=== PATIENT | male | born 1965 | race Caucasian/White ===

== ENCOUNTER 2020-08-23 12:13 | Inpatient (IN) | payer BC ==
[2020-08-23] MEDS ORDERED: SODIUM CHLORIDE 0.9% 1,000 ML IV STA (12:26)
--- NOTE | 2020-08-23 12:37 | ED ---
Seizure HPI - General Chief Complaint: Seizure Stated Complaint: Seizure Time Seen by Provider: 08/23/20 12:20 Source: patient, RN notes reviewed, old records reviewed Mode of arrival: EMS Limitations: no limitations - History of Present Illness Initial Comments: This is a 54-year-old male DF for evaluation history of alcohol abuse last drink last Wednesday coming in for seizure today. Patient standing up had seizure fell forward hit his head when on his face, minor abrasions to his anterior face no active bleeding unsure of loss of consciousness is again patient was having seizure during this time. Seizure was witnessed this is the second seizure he does have pertaining alcohol withdrawal MD Complaint: seizure -: days(s) Description of Episode: loss of consciousness, tonic-clonic movement -: second(s) Witnessed: yes - by bystander Trauma: Yes Seizure History: known seizure disorder Place: home Possible Precipitating Event: none Associated Symptoms: denies other symptoms Treatments Prior to Arrival: none - Related Data Home Medications Medication Instructions Recorded Confirmed HYDROcodone/APAP 10-325MG [[place] 1 tab PO BID PRN 08/23/20 08/23/20 10-325] Ibuprofen [Motrin] 800 mg PO BID PRN 08/23/20 08/23/20 Methocarbamol [Robaxin-750] 750 mg PO DAILY PRN 08/23/20 08/23/20 Allergies Allergy/AdvReac Type Severity Reaction Status Date / Time No Known Allergies Allergy Verified 08/23/20 14:47 Review of Systems ROS Statement: Those systems with pertinent positive or pertinent negative responses have been documented in the HPI. ROS Other: All systems not noted in ROS Statement are negative. Past Medical History Past Medical History: Seizure Disorder History of Any Multi-Drug Resistant Organisms: None Reported Past Surgical History: Orthopedic Surgery Additional Past Surgical History / Comment(s): neck surgery Past Psychological History: No Psychological Hx Reported Smoking Status: Current every day smoker Past Alcohol Use History: Occasional Past Drug Use History: None Reported General Exam Limitations: no limitations General appearance: alert, in no apparent distress Head exam: Present: atraumatic, normocephalic, normal inspection Eye exam: Present: normal appearance, PERRL, EOMI. Absent: scleral icterus, conjunctival injection, periorbital swelling ENT exam: Present: normal exam, mucous membranes moist Neck exam: Present: normal inspection. Absent: tenderness, meningismus, lymphadenopathy Respiratory exam: Present: normal lung sounds bilaterally. Absent: respiratory distress, wheezes, rales, rhonchi, stridor Cardiovascular Exam: Present: normal rhythm, tachycardia, normal heart sounds. Absent: systolic murmur, diastolic murmur, rubs, gallop, clicks GI/Abdominal exam: Present: soft, normal bowel sounds. Absent: distended, tende rness, guarding, rebound, rigid Extremities exam: Present: normal inspection, full ROM, normal capillary refill. Absent: tenderness, pedal edema, joint swelling, calf tenderness Back exam: Present: normal inspection Neurological exam: Present: alert, oriented X3, CN II-XII intact Psychiatric exam: Present: normal affect, normal mood Skin exam: Present: warm, dry, intact, normal color. Absent: rash Course Vital Signs 08/23/20 08/23/20 08/23/20 12:20 13:27 14:00 Temperature 98.7 F Pulse Rate 122 H 109 H 109 H Respiratory 18 16 18 Rate Blood Pressure 117/78 111/73 111/73 O2 Sat by Pulse 97 99 96 Oximetry - Reevaluation(s) Reevaluation #1: 08/23/20 13:37 Medical record is reviewed Reevaluation #2: 08/23/20 13:37 Patient has no recurrent seizures so far here in the ER Reevaluation #3: 08/23/20 14:57 no recurrent seizure Reevaluation #4: 08/23/20 14:58 patient is informed of results and questions are answered Medical Decision Making - Medical Decision Making 54 male to the ER for evaluation patient to the ER for evaluation of seizure DTs. Patient did have seizure, patient be admitted for monitoring for seizure and alcohol withdrawal - Lab Data Result diagrams: 08/23/20 12:36 08/23/20 12:36 Lab Results 08/23/20 08/23/20 Range/Units 12:36 12:36 WBC 10.0 (3.8-10.6) k/uL RBC 3.64 L (4.30-5.90) m/uL Hgb 13.8 (13.0-17.5) gm/dL Hct 42.1 (39.0-53.0) % MCV 115.5 H (80.0-100.0) fL MCH 37.9 H (25.0-35.0) pg MCHC 32.9 (31.0-37.0) g/dL RDW 12.3 (11.5-15.5) % Plt Count 87 L (150-450) k/uL Neutrophils % 70 % Lymphocytes % 17 % Monocytes % 9 % Eosinophils % 2 % Basophils % 1 % Neutrophils # 7.0 (1.3-7.7) k/uL Lymphocytes # 1.7 (1.0-4.8) k/uL Monocytes # 0.9 (0-1.0) k/uL Eosinophils # 0.2 (0-0.7) k/uL Basophils # 0.1 (0-0.2) k/uL Manual Slide Review Performed Large Platelets Present Polychromasia Present Macrocytosis Marked A Sodium 129 L (137-145) mmol/L Potassium 3.4 L (3.5-5.1) mmol/L Chloride 102 (98-107) mmol/L Carbon Dioxide 18 L (22-30) mmol/L Anion Gap 9 mmol/L BUN 4 L (9-20) mg/dL Creatinine 0.59 L (0.66-1.25) mg/dL Est GFR (CKD-EPI)AfAm >90 (>60 ml/min/1.73 sqM) Est GFR (CKD-EPI)NonAf >90 (>60 ml/min/1.73 sqM) Glucose 173 H (74-99) mg/dL Calcium 8.8 (8.4-10.2) mg/dL Total Bilirubin 3.2 H (0.2-1.3) mg/dL AST 92 H (17-59) U/L ALT 29 (4-49) U/L Alkaline Phosphatase 273 H (38-126) U/L Total Protein 6.3 (6.3-8.2) g/dL Albumin 2.8 L (3.5-5.0) g/dL Salicylates <1.0 mg/dL Acetaminophen <10.0 ug/mL Serum Alcohol <10 mg/dL - EKG Data -: EKG Interpreted by Me (EKG shows sinus tachycardia rate of 1:30 FL 152 QRS 94 QTC 456) - Radiology Data Radiology results: report reviewed (CT brain C spine is negative for acute disease), image reviewed Critical Care Time Critical Care Time: Yes Total Critical Care Time: 31 Disposition Clinical Impression: New onset seizure, Alcohol withdrawal, Delirium tremens Disposition: ADMITTED IP TO THIS HOSP Condition: Fair Is patient prescribed a controlled substance at d/c from ED?: No Referrals: Nonstaff,Physician [Primary Care Provider] - 1-2 days
[2020-08-23] MEDS ORDERED: LORazepam 2 MG/ML INJ IV STA (12:49)
[2020-08-23] MEDS ORDERED: LORazepam 2 MG/ML INJ IV PRN ×3 (12:49)
[2020-08-23] MEDS ORDERED: THIAMINE 100 MG/ML 2 ML VIAL IM STA (12:49)
[2020-08-23 13:04] LABS: Basophils # (A) 0.1 k/uL (0-0.2); Basophils % (A) 1 %; Eosinophils # (A) 0.2 k/uL (0-0.7); Eosinophils % (A) 2 %; HCT 42.1 % (39.0-53.0); HGB 13.8 gm/dL (13.0-17.5); Lymphocytes # (A) 1.7 k/uL (1.0-4.8); Lymphocytes % (A) 17 %; MCH 37.9 pg (25.0-35.0); MCHC 32.9 g/dL (31.0-37.0); MCV 115.5 fL (80.0-100.0); Macrocytosis Marked; Mean Platelet Volume 12.4; Monocytes # (A) 0.9 k/uL (0-1.0); Monocytes % (A) 9 %; Neutrophils % (A) 70 %; RBC 3.64 m/uL (4.30-5.90); RDW 12.3 % (11.5-15.5)
[2020-08-23 13:19] LABS: ALT 29 U/L (4-49); AST 92 U/L (17-59); Acetaminophen <10.0 ug/mL; African American GFR (CKD) >90 (>60 ml/min/1.73 sqM); Albumin 2.8 g/dL (3.5-5.0); Alcohol <10 mg/dL; Alkaline Phosphatase 273 U/L (38-126); Anion Gap 9 mmol/L; Blood Urea Nitrogen 4 mg/dL (9-20); Calcium 8.8 mg/dL (8.4-10.2); Carbon Dioxide 18 mmol/L (22-30); Chloride 102 mmol/L (98-107); Glucose 173 mg/dL (74-99); Non-African American GFR(CKD) >90 (>60 ml/min/1.73 sqM); Potassium 3.4 mmol/L (3.5-5.1); Salicylate <1.0 mg/dL; Sodium 129 mmol/L (137-145); Total Bilirubin 3.2 mg/dL (0.2-1.3); Total Protein 6.3 g/dL (6.3-8.2)
--- NOTE | 2020-08-23 13:44 | CT ---
EXAMINATION TYPE: CT brain cspine wo con, CT facial bones wo con DATE OF EXAM: 08/23/2020 COMPARISON: None HISTORY: Fall, pain, possible seizure CT DLP: 1113.2 (accession [id number]), Included in c-spine/brain (accession [id number]) [facility] exposure control for dose reduction was used. TECHNIQUE: CT scan of the head and cervical spine and facial bones are performed without contrast. FINDINGS: There is no acute intracranial hemorrhage, mass effect, or midline shift identified. The ventricles and sulci are within normal limits in size. Suspect choroidal fissure cysts are present. There is cortical atrophy is mild. The globes are intact and the visualized sinuses are markable for air-fluid level within the right maxillary sinus, minimal inflammatory change within the left maxill rakel sinus, ethmoid air cells, frontal sinus. Cervical spine is visualized in its entirety from C1 through upper thoracic levels and demonstrates s atisfactory alignment without evidence of acute fracture or dislocation. Reversal the normal cervical lordosis can be seen in muscle spasm. Is multilevel spondylosis. Loss of disc height is present at C 5-6 and C6-7. Posterior laminectomies, posterior fusion performed at C5-6. There is multilevel forami nal encroachment. Prevertebral soft tissue appears within normal limits. The C1-C2 articulation is u nremarkable. Comminuted nasal bone fractures are displaced. There is air-fluid level within the right maxillary si nus which shows high attenuation. Anterior wall the right maxillary sinus shows minimally displaced f racture. The medial right maxillary sinus wall shows probable fracture as well, redundant nasal septu m may be indicative of fracture with buckling. Over the right frontal region there is a cephalohemato ma present. Orbits are intact. Temporomandibular joints intact. Auditory ossicles show symmetric appe arance. No erosion of the scutum bilaterally, no tympanic membrane thickening. IMPRESSION: 1. There is no acute fracture or dislocation evident in the cervical spine. 2. No acute intracranial hemorrhage, mass effect, or midline shift is seen. 3. Comminuted nasal bone fractures. Hemorrhage noted within right maxillary sinus, there is a cephalo hematoma over the supraorbital region. Right maxillary sinus fractures.
[2020-08-23 14:07] LABS: Large Platelets Present; Platelet Count 87 k/uL (150-450); Polychromasia Present
[2020-08-23] MEDS ORDERED: SODIUM CHLORIDE 0.9% 1,000 ML IV ONE (14:54)
[2020-08-23] MEDS ORDERED: levETIRAcetam IV 1,500 MG in SALINE 1 100ML.BAG IVPB STA (14:57)
[2020-08-23] MEDS ORDERED: DIAZEPAM 5 MG/ML 2 ML INJ IVP STA (15:18)
[2020-08-23] MEDS: THIAMINE 100 MG TAB PO SCH (18:11)
[2020-08-23] MEDS ORDERED: NALOXONE 0.4 MG/ML 1 ML VIAL IV PRN (19:15)
[2020-08-23] MEDS ORDERED: ACETAMINOPHEN TAB 325 MG TAB PO PRN (19:15)
[2020-08-23] MEDS ORDERED: SODIUM CHLORIDE 0.9% 1,000 ML IV SCH (19:15)
[2020-08-23] MEDS ORDERED: Potassium Replacement Protocol 1 EACH MISC MISCELLANE PRN (19:19)
[2020-08-23] MEDS: SODIUM CHLORIDE 0.9% 1,000 ML IV SCH (19:30)
[2020-08-23] MEDS: HEPARIN SODIUM,PORCINE 5,000 UNIT/ML 1 ML VIAL SQ SCH (20:27)
--- NOTE | 2020-08-23 20:47 | P.CNNES ---
History of Present Illness Consult date: 08/23/20 Requesting physician: Andres Rooney Reason for Consult: Seizure History of Present Illness: Patient is a 54-year-old male, who came to the hospital today at 12:13 PM by ambulance for seizure. Patient has history of alcohol abuse, last drink last Wednesday (a week ago), came in for seizures. According to EMS flow sheet, it was reported that he was standing next to his stepdaughter's car and then fell forwards, face down and began seizing in the parking lot. She described grand mal type seizure activity. The seizure lasted about 1-1-1/2 minutes. He had minor abrasion to the anterior face, no active bleeding. Patient was post ictal when EMS arrived. Patient did bite his tongue with the seizure. Patient's vital signs at the scene was blood pressure 137/88, pulse rate 134, respirations 16, saturation 95% and blood glucose 180. Vital signs on arrival blood pressure 117/78, pulse rate 122, temperature 98.7. Computed tomography scan of the head showed no acute intracranial hemorrhage, mass effect. CT of the facial bones revealed comminuted nasal bone fractures. Hemorrhage noted within the right maxillary sinus, there is a cephalohematoma over the supraorbital region. Right maxillary sinus fractures. EKG shows sinus tachycardia, possible lateral infarct, age undetermined. Blood test shows ne gative blood alcohol level. Sodium 139 potassium 3.4, renal functions normal. AST 92, ALT 29, WBC 10.0, hemoglobin 13.8, platelets 87. MCV is highly elevated 115. Patient was brought to the ER. No seizures have occurred while in the ER, patient was admitted for possible alcohol withdrawal, possible DTs. Keppra was started. Patient states he had history of a seizure in 2017 when he was undergoing rehabilitation. No other seizures since then. I tried to ask alcohol history but patient apparently keeps on changing statement. he states that he has not drank alcohol for a week. Prior to that he was drinking 6 pack beer a day. denies any drug use. Review of Systems patient complains of nose pain, some headache. Denies any focal symptoms denies chest pain. All other review of systems unremarkable. Past Medical History Past Medical History: Seizure Disorder History of Any Multi-Drug Resistant Organisms: None Reported Past Surgical History: Adenoidectomy, Orthopedic Surgery, Tonsillectomy Additional Past Surgical History / Comment(s): neck surgery Past Psychological History: No Psychological Hx Reported Smoking Status: Former smoker Past Alcohol Use History: Occasional Past Drug Use History: None Reported Medications and Allergies Home Medications Medication Instructions Recorded Confirmed Type HYDROcodone/APAP 10-325MG [[place] 1 tab PO BID PRN 08/23/20 08/23/20 History 10-325] Ibuprofen [Motrin] 800 mg PO BID PRN 08/23/20 08/23/20 History Methocarbamol [Robaxin-750] 750 mg PO DAILY PRN 08/23/20 08/23/20 History Allergies Allergy/AdvReac Type Severity Reaction Status Date / Time No Known Allergies Allergy Verified 08/23/20 14:47 Physical Examination - Vital Signs Vital Signs: Vital Signs Temp Pulse Resp BP Pulse Ox 08/23/20 16:07 98.4 F 96 18 95/63 95 08/23/20 14:00 109 H 18 111/73 96 08/23/20 13:27 109 H 16 111/73 99 08/23/20 12:20 98.7 F 122 H 18 117/78 97 Intake and Output 08/23/20 08/23/20 08/23/20 06:59 14:59 22:59 Other: Weight 81.647 kg 81.647 kg On examination patient is a middle aged male, in no acute distress. Patient appears slightly tremulous. He is alert and awake fully oriented. Speech and language functions are normal. Attention and concentration fund of knowledge appears adequate. On cranial examination pupils are round and reactive to light, visual butler are full on confrontation, extraocular muscles are intact with no nystagmus. Face is symmetric. Tongue protrudes to the midline. patient has evidence of tongue bite kindra on the left. Palatal elevation and sensation normal. Hearing and shoulder shrug normal. On muscle strength testing there is no pronator drift and the strength is normal in arms and legs, distally and proximally. Deep tendon reflexes are symmetric. patient is slightly tremulous for [id number] testing. Tone and bulk of muscles normal. Gait deferred. No obvious bruit S1 and S2 audible. No peripheral edema. Chest clear abdomen soft nontender. Results - Laboratory Findings CBC and BMP: 08/23/20 12:36 08/23/20 12:36 Abnormal Lab Findings: Abnormal Labs 08/23/20 08/23/20 12:36 12:36 RBC 3.64 L MCV 115.5 H MCH 37.9 H Plt Count 87 L Macrocytosis Marked A Sodium 129 L Potassium 3.4 L Carbon Dioxide 18 L BUN 4 L Creatinine 0.59 L Glucose 173 H Total Bilirubin 3.2 H AST 92 H Alkaline Phosphatase 273 H Albumin 2.8 L Assessment and Plan Assessment: * Seizure, probably due to alcohol withdrawal. * Nasal bone fracture due to fall from seizure * Delirium tremens. * History of alcoholism. Plan: * Continue Keppra. May decrease dose to 500 mg twice a day, as the seizure was likely provoked due to alcohol withdrawal. * EEG to evaluate for epileptiform activity. This can be done as inpatient or outpatient. * Patient informed of [place] state law of no driving unless seizure free for 6 months, climbing ladders, operate dangerous machinery or unsupervised sw imming. * Watch for delirium tremens. Continue thiamine, folate, multivitamins. * Recommend abstinence from alcohol.
[2020-08-23] MEDS: levETIRAcetam 500 MG TAB PO SCH (21:08)
[2020-08-23 23:31] LABS: Amphetamine Screen,Urine Not Detected (NotDetected); Barbiturate Screen,Urine Not Detected (NotDetected); Benzodiazepines Screen,Urine Detected (NotDetected); Cocaine Screen,Urine Not Detected (NotDetected); Methadone Screen, Urine Not Detected (NotDetected); Opiate Screen,Urine Not Detected (NotDetected); Oxycodone Screen, Urine Not Detected (NotDetected); Phencyclidine Screen,Urine Not Detected (NotDetected); Tricyclic Antidepressant,Urine Not Detected (NotDetected); Urn Cannabinoid Scrn Not Detected (NotDetected)
[2020-08-24] MEDS ORDERED: levETIRAcetam IV 1,000 MG in SALINE 1 100ML.BAG IVPB SCH
[2020-08-24] MEDS: SODIUM CHLORIDE 0.9% 1,000 ML IV SCH ×4 (02:32→21:00)
[2020-08-24 06:37] LABS: HCT 38.1 % (39.0-53.0); HGB 12.5 gm/dL (13.0-17.5); MCH 38.3 pg (25.0-35.0); MCHC 32.9 g/dL (31.0-37.0); MCV 116.4 fL (80.0-100.0); Macrocytosis Marked; Mean Platelet Volume 11.9; RBC 3.27 m/uL (4.30-5.90); RDW 12.5 % (11.5-15.5); WBC 6.4 k/uL (3.8-10.6)
[2020-08-24 06:38] LABS: Platelet Count 76 k/uL (150-450)
[2020-08-24 06:57] LABS: Eosinophils # (M) 0.13 k/uL (0-0.7); Lymphocytes # (M) 1.73 k/uL (1.0-4.8); Monocytes # (M) 0.26 k/uL (0-1.0); Neutrophils # (M) 4.29 k/uL (1.3-7.7); Neutrophils % (M) 67 %; Nucleated Red Blood Cells 0 /100 WBC (0-0); Total Cells Counted 100
[2020-08-24 06:58] LABS: Large Platelets Present
[2020-08-24] MEDS: THIAMINE 100 MG TAB PO SCH ×2 (08:52→17:36)
[2020-08-24] MEDS: HYDROcodone/APAP 10-325MG 1 EACH TAB PO PRN (08:53)
[2020-08-24] MEDS: HEPARIN SODIUM,PORCINE 5,000 UNIT/ML 1 ML VIAL SQ SCH ×2 (08:53→21:00)
[2020-08-24] MEDS: levETIRAcetam 500 MG TAB PO SCH ×2 (09:02→21:00)
--- NOTE | 2020-08-24 09:23 | P.HPIM ---
History of Present Illness H&P Date: 08/23/20 This is a late note entry. Patient was seen around 7 PM yesterday. This is a 54-year-old male with no past medical history history of alcohol abuse quit 2 weeks ago has about 6 beers daily presented to the ED after a witnessed seizure. He reports one other seizure in 2017 while in alcohol rehab. He currently takes no antiepileptic medication. He does say he hit his head. Apparently, patient was going to leave AMA but decided against it. He denies any headache, lower extremity edema, nausea or vomiting, fever or chills, cough, chest pain, shortness of breath, palpitations, changes in urination or bowel habits. No changes in appetite or weight. He denies any dizziness. In the ED, his vital signs were stable except for pulse of 122. CBC showed macrocytosis and thrombocytopenia. CMP showed sodium of 129, potassium of 3.4 bicarb of 18, glucose 173, total bilirubin 3.2, AST 92, alkaline phosphatase 273. UDS positive for benzos. Serum alcohol negative. Patient is admitted for seizure and alcohol abuse impending withdrawals. Review of Systems Pertinent positives and negatives as discussed in HPI, a complete review of systems was performed and all other systems are negative. Past Medical History Past Medical History: Seizure Disorder History of Any Multi-Drug Resistant Organisms: None Reported Past Surgical History: Adenoidectomy, Orthopedic Surgery, Tonsillectomy Additional Past Surgical History / Comment(s): neck surgery Past Psychological History: No Psychological Hx Reported Smoking Status: Former smoker Past Alcohol Use History: Occasional Past Drug Use History: None Reported Medications and Allergies Home Medications Medication Instructions Recorded Confirmed Type HYDROcodone/APAP 10-325MG [[place] 1 tab PO BID PRN 08/23/20 08/23/20 History 10-325] Ibuprofen [Motrin] 800 mg PO BID PRN 08/23/20 08/23/20 History Methocarbamol [Robaxin-750] 750 mg PO DAILY PRN 08/23/20 08/23/20 History Allergies Allergy/AdvReac Type Severity Reaction Status Date / Time No Known Allergies Allergy Verified 08/23/20 14:47 Physical Exam Vitals: Vital Signs Temp Pulse Resp BP Pulse Ox 08/23/20 16:07 98.4 F 96 18 95/63 95 08/23/20 14:00 109 H 18 111/73 96 08/23/20 13:27 109 H 16 111/73 99 08/23/20 12:20 98.7 F 122 H 18 117/78 97 Intake and Output 08/23/20 08/23/20 08/23/20 06:59 14:59 22:59 Other: Weight 81.647 kg 81.647 kg General: [non toxic], [no distress], [appears at stated age] Derm: [warm], [dry], large bruise over the forehead Head: [atraumatic], [normocephalic], [symmetric] Eyes: [EOMI], [no lid lag], [anicteric sclera] Mouth: [no lip lesion], [mucus membranes moist] Cardiovascular: [S1S2 reg], [tachycardic], [positive posterior tibial pulse bilateral], Lungs: [CTA bilateral], [no rhonchi, no rales] , [no accessory muscle use] Abdominal: [soft], [ nontender to palpation], [no guarding], [no appreciable organomegaly] Ext: [no gross muscle atrophy], [no edema], [no contractures] Neuro: [ CN II-XI grossly intact], [no focal neuro deficits], mild tremors Psych: [Alert], [oriented], [appropriate affect] Results CBC & Chem 7: 08/24/20 05:35 08/23/20 12:36 Labs: Abnormal Lab Results - Last 24 Hours (Table) 08/23/20 08/23/20 Range/Units 12:36 12:36 RBC 3.64 L (4.30-5.90) m/uL MCV 115.5 H (80.0-100.0) fL MCH 37.9 H (25.0-35.0) pg Plt Count 87 L (150-450) k/uL Macrocytosis Marked A Sodium 129 L (137-145) mmol/L Potassium 3.4 L (3.5-5.1) mmol/L Carbon Dioxide 18 L (22-30) mmol/L BUN 4 L (9-20) mg/dL Creatinine 0.59 L (0.66-1.25) mg/dL Glucose 173 H (74-99) mg/dL Total Bilirubin 3.2 H (0.2-1.3) mg/dL AST 92 H (17-59) U/L Alkaline Phosphatase 273 H (38-126) U/L Albumin 2.8 L (3.5-5.0) g/dL Thrombosis Risk Factor Assmnt - Choose All That Apply Any of the Below Risk Factors Present?: No Assessment and Plan Assessment: Seizure likely related to alcohol withdrawal Nasal bone fracture History of alcoholism with impending withdrawal Macrocytosis with thrombocytopenia Hyponatremia Hypokalemia Alcoholic hepatitis Patient is admitted after witnessed seizure. Plans: He has been loaded on Keppra. He will be placed on CIWA protocol and given Ativan as needed. Neurology has been consulted for further recommendations. Telemetry monitoring. As seen on face CT. Plans: Continue to monitor. Plans: Management as above. Likely related to alcohol abuse. Plans: Continue to monitor. No signs of active bleeding. Repeat CBC tomorrow morning. Sodium 129. Likely related to dehydration. Plans: IV hydration as above. Repeat CMP tomorrow morning. Potassium 3.4. Plans: Replace via protocol. Repeat CMP tomorrow morning. Likely related to history of alcohol abuse. Plans: Encouraged to quit. DVT prophylaxis: [SCD boots] Discussed with: [Patient] Anticipated discharge: [2-3 days] Anticipated discharge place: [Home] A total of [45] minutes was spent on the care of this complex patient more than 50% of the time was spent in counseling and care coordination. Patient name to his fiance decision maker if he can't make decisions for himself. Patient would like to be full code.
[2020-08-24 09:46] LABS: Albumin 2.4 g/dL (3.80-4.90); Albumin/Globulin Ratio 0.96 (1.60-3.17); Anion Gap 6.4 mmol/L (4.00-12.00); BUN/Creat Ratio 8.33 Ratio (12.00-20.00); Calcium 7.7 mg/dL (8.7-10.3); Carbon Dioxide 22.6 mmol/L (21.6-31.8); Globulin 2.5 g/dL (1.6-3.3); Magnesium 1.4 mg/dL (1.5-2.4); Non-African American GFR(CKD) 115.6 (60.0-200.0); Potassium 3.2 mmol/L (3.5-5.5); Total Protein 4.9 g/dL (6.2-8.2)
[2020-08-24] MEDS ORDERED: Potassium Replacement Protocol 1 EACH MISC MISCELLANE PRN (11:07)
[2020-08-24] MEDS: MAGNESIUM SULFATE-D5W PMX 1 GM in DEXTROSE/WATER 1 100ML.BAG IVPB SCH ×2 (12:26→13:42)
[2020-08-24] MEDS: POTASSIUM CHLORIDE ER 20 MEQ TAB.ER PO SCH ×2 (12:26→13:42)
--- NOTE | 2020-08-24 13:15 | P.PN ---
Subjective Progress Note Date: 08/24/20 Patient was seen and examined. No acute events overnight. Nursing reporting shakiness. He denies any chest pain, shortness breath or palpitations. No nausea or vomiting. No fever or chills. No further seizure episodes. Objective - Vital Signs Vital signs: Vital Signs Temp 98.4 F 08/24/20 11:52 Pulse 76 08/24/20 11:52 Resp 16 08/24/20 11:52 BP 100/69 08/24/20 11:52 Pulse Ox 95 08/24/20 11:52 Intake & Output 08/23/20 08/24/20 08/24/20 18:59 06:59 18:59 Intake Total 800 Output Total 700 Balance 100 Weight 81.647 kg Intake: Intake, IV Titration 800 Amount Sodium Chloride 0.9% 1, 200 000 ml @ 150 mls/hr IV . Q6H40M REJI Rx#:[id number] Sodium Chloride 0.9% 1, 600 000 ml @ 150 mls/hr IV . Q6H40M REJI Rx#:[id number] Output: Urine 700 Other: Voiding Method Urinal Urinal # Voids 1 - Exam General: [non toxic], [no distress], [appears at stated age] Derm: [warm], [dry], large bruise over the forehead, bruising over the orbital socket Head: [atraumatic], [normocephalic], [symmetric] Eyes: [EOMI], [no lid lag], [anicteric sclera] Mouth: [no lip lesion], [mucus membranes moist] Cardiovascular: [S1S2 reg], [tachycardic], [positive posterior tibial pulse bilateral], Lungs: [CTA bilateral], [no rhonchi, no rales] , [no accessory muscle use] Abdominal: [soft], [ nontender to palpation], [no guarding], [no appreciable organomegaly] Ext: [no gross muscle atrophy], [no edema], [no contractures] Neuro: [no focal neuro deficits], mild tremors Psych: [Alert], [oriented], [appropriate affect] - Labs CBC & Chem 7: 08/24/20 05:35 08/24/20 05:35 Labs: Abnormal Lab Results - Last 24 Hours (Table) 08/23/20 08/23/20 08/23/20 Range/Units 12:36 12:36 23:10 RBC 3.64 L (4.30-5.90) m/uL Hgb (13.0-17.5) gm/dL Hct (39.0-53.0) % MCV 115.5 H (80.0-100.0) fL MCH 37.9 H (25.0-35.0) pg Plt Count 87 L (150-450) k/uL Macrocytosis Marked A Sodium 129 L (137-145) mmol/L Potassium 3.4 L (3.5-5.1) mmol/L Carbon Dioxide 18 L (22-30) mmol/L BUN 4 L (9-20) mg/dL Creatinine 0.59 L (0.66-1.25) mg/dL BUN/Creatinine Ratio (12.00-20.00) Ratio Glucose 173 H (74-99) mg/dL Calcium (8.7-10.3) mg/dL Magnesium (1.5-2.4) mg/dL Total Bilirubin 3.2 H (0.2-1.3) mg/dL AST 92 H (17-59) U/L Alkaline Phosphatase 273 H (38-126) U/L Total Protein (6.2-8.2) g/dL Albumin 2.8 L (3.5-5.0) g/dL Albumin/Globulin Ratio (1.60-3.17) g/dL U Benzodiazepines Scrn Detected H (NotDetected) 08/24/20 08/24/20 Range/Units 05:35 05:35 RBC 3.27 L (4.30-5.90) m/uL Hgb 12.5 L (13.0-17.5) gm/dL Hct 38.1 L (39.0-53.0) % MCV 116.4 H (80.0-100.0) fL MCH 38.3 H (25.0-35.0) pg Plt Count 76 L (150-450) k/uL Macrocytosis Marked A Sodium (137-145) mmol/L Potassium 3.2 L (3.5-5.1) mmol/L Carbon Dioxide (22-30) mmol/L BUN 5.0 L (9-20) mg/dL Creatinine (0.66-1.25) mg/dL BUN/Creatinine Ratio 8.33 L (12.00-20.00) Ratio Glucose (74-99) mg/dL Calcium 7.7 L (8.7-10.3) mg/dL Magnesium 1.4 L (1.5-2.4) mg/dL Total Bilirubin 3.0 H (0.2-1.3) mg/dL AST 78 H (17-59) U/L Alkaline Phosphatase 192 H (38-126) U/L Total Protein 4.9 L (6.2-8.2) g/dL Albumin 2.40 L (3.5-5.0) g/dL Albumin/Globulin Ratio 0.96 L (1.60-3.17) g/dL U Benzodiazepines Scrn (NotDetected) Assessment and Plan Assessment: Seizure likely related to alcohol withdrawal Nasal bone fracture History of alcoholism with impending withdrawal Macrocytosis with thrombocytopenia Hypokalemia Alcoholic hepatitis Patient is admitted after witnessed seizure. Plans: He has been loaded on Keppra. Patient is restarted on Keppra by mouth. EEG has been ordered and is pending. He will be placed on CIWA protocol and given Ativan as needed. Neurology has been consulted for further recommendations. Telemetry monitoring. As seen on face CT. Plans: Continue to monitor. Plans: Management as above. Likely related to alcohol abuse. Plans: Continue to monitor. No signs of active bleeding. Repeat CBC tomorrow morning. Started on Librium. Potassium 3.2. Plans: Replace via protocol. Repeat CMP tomorrow morning. Likely related to history of alcohol abuse. Plans: Encouraged to quit. DVT prophylaxis: [SCD boots] Discussed with: [Patient] Anticipated discharge: [2-3 days] Anticipated discharge place: [Home] A total of [45] minutes was spent on the care of this complex patient more than 50% of the time was spent in counseling and care coordination. Patient name to his fiance decision maker if he can't make decisions for himself. Patient would like to be full code.
[2020-08-25] MEDS: SODIUM CHLORIDE 0.9% 1,000 ML IV SCH (04:36)
[2020-08-25] MEDS: THIAMINE 100 MG TAB PO SCH (08:04)
[2020-08-25] MEDS: levETIRAcetam 500 MG TAB PO SCH (08:04)
[2020-08-25] MEDS: HEPARIN SODIUM,PORCINE 5,000 UNIT/ML 1 ML VIAL SQ SCH (08:04)
[2020-08-25 11:44] VITALS: BP 117/80; PULSE 98; RESP 16; TEMP 98.1
[2020-08-25] MEDS: HYDROcodone/APAP 10-325MG 1 EACH TAB PO PRN (13:34)
--- NOTE | 2020-08-25 14:09 | P.DS ---
Providers Date of admission: 08/23/20 14:54 Expected date of discharge: 08/25/20 Attending physician: Susanne Ontiveros MD Consults: 08/23/20 14:54 Consult Physician Routine Consulting Provider: Julien Qureshi Consult Reason/Comments: sz Do you want consulting provider notified?: Yes Primary care physician: Physician Nonstaff Hospital Course: This is a 54-year-old male with no past medical history history of alcohol abuse quit 2 weeks ago has about 6 beers daily presented to the ED after a witnessed seizure. He reports one other seizure in 2017 while in alcohol rehab. He currently takes no antiepileptic medication. He does say he hit his head. Apparently, patient was going to leave AMA but decided against it. He denies any headache, lower extremity edema, nausea or vomiting, fever or chills, cough, chest pain, shortness of breath, palpitations, changes in urination or bowel habits. No changes in appetite or weight. He denies any dizziness. In the ED, his vital signs were stable except for pulse of 122. CBC showed macrocytosis and thrombocytopenia. CMP showed sodium of 129, potassium of 3.4 bicarb of 18, glucose 173, total bilirubin 3.2, AST 92, alkaline phosphatase 273. UDS positive for benzos. Serum alcohol negative. Patient is admitted for seizure and alcohol abuse impending withdrawals. Patient was started on Keppra IV and neurology was consulted. Neurology recommended Keppra by mouth. Neurology recommended EEG to be done in the outpatient setting. Patient did not have any further seizure episodes. Patient was advised that he cannot drive unless seizure free for 6 months. Patient was seen and examined. No acute events overnight. Patient denies any chest pain, shortness breath or palpitations. No nausea or vomiting. No fever or chills. Wanting to go home. General: [non toxic], [no distress], [appears at stated age] Derm: [warm], [dry], large bruise over the forehead, bruising over the orbital socket Head: [atraumatic], [normocephalic], [symmetric] Eyes: [EOMI], [no lid lag], [anicteric sclera] Mouth: [no lip lesion], [mucus membranes moist] Cardiovascular: [S1S2 reg], [tachycardic], [positive posterior tibial pulse bilateral], Lungs: [CTA bilateral], [no rhonchi, no rales] , [no accessory muscle use] Abdominal: [soft], [ nontender to palpation], [no guarding], [no appreciable organomegaly] Ext: [no gross muscle atrophy], [no edema], [no contractures] Neuro: [no focal neuro deficits], mild tremors Psych: [Alert], [oriented], [appropriate affect] Seizure likely related to alcohol withdrawal Nasal bone fracture History of alcoholism with impending withdrawal Macrocytosis with thrombocytopenia Alcoholic hepatitis Patient is admitted after witnessed seizure. Plans: Patient is restarted on Keppra by mouth. EEG can be done in the outpatient setting. He will be placed on CIWA protocol and given Ativan as needed. Follow neurology within 1 week of discharge. Telemetry monitoring. Patient advised against driving until 6 months seizure-free. Patient verbalized understanding of the plan. As seen on face CT. Plans: Continue to monitor. Pain management. Plans: Management as above. Likely related to alcohol abuse. Plans: Continue to monitor. No signs of active bleeding. Repeat CBC tomorrow morning. Started on Librium. Likely related to history of alcohol abuse. Plans: Encouraged to quit. Patient admitted for alcohol-induced seizure. No more seizure episodes. Plans on DC home with Keppra. Follow-up with PCP within 3 days of discharge. Follow- up with neurology within 1 week of discharge. This complex discharge took about 45 minutes to complete. Pertinent Studies: Face CT, CT head and C-spine Patient Condition at Discharge: Stable Plan - Discharge Summary New Discharge Prescriptions: New levETIRAcetam [Keppra] 500 mg PO Q12HR #60 tab Thiamine [Vitamin B-1] 100 mg PO BID-W/MEALS #60 tab Continue Ibuprofen [Motrin] 800 mg PO BID PRN PRN Reason: Pain Methocarbamol [Robaxin-750] 750 mg PO DAILY PRN PRN Reason: Muscle Spasm HYDROcodone/APAP 10-325MG [[place] 10-325] 1 tab PO BID PRN PRN Reason: Pain Discharge Medication List HYDROcodone/APAP 10-325MG [[place] 10-325] 1 tab PO BID PRN 08/23/20 [History] Ibuprofen [Motrin] 800 mg PO BID PRN 09/25/20 [History] Methocarbamol [Robaxin-750] 750 mg PO DAILY PRN 08/23/20 [History] Thiamine [Vitamin B-1] 100 mg PO BID-W/MEALS #60 tab 08/25/20 [Rx] levETIRAcetam [Keppra] 500 mg PO Q12HR #60 tab 08/25/20 [Rx] Follow up Appointment(s)/Referral(s): Nonstaff,Physician [Primary Care Provider] - 1-2 days Gómez Dupree MD [REFERRING] - 1 Week Activity/Diet/Wound Care/Special Instructions: Diet: Regular Follow-up with PCP within 3 days of discharge. Follow-up with neurology within 1 week of discharge. Take all medications as advised. He will need neurology clearance when you are 6 months seizure free in order to resume driving. Come back to the ED or call 911 for further seizures, chest pain, shortness of breath or palpitations. Discharge Disposition: HOME SELF-CARE
[2020-08-25 14:18] LABS: Basophils # (A) 0.1 k/uL (0-0.2); Basophils % (A) 1 %; Eosinophils # (A) 0.2 k/uL (0-0.7); Eosinophils % (A) 3 %; HCT 39.8 % (39.0-53.0); HGB 12.5 gm/dL (13.0-17.5); Lymphocytes # (A) 1.6 k/uL (1.0-4.8); Lymphocytes % (A) 25 %; MCH 36.9 pg (25.0-35.0); MCHC 31.4 g/dL (31.0-37.0); MCV 117.7 fL (80.0-100.0); Macrocytosis Marked; Mean Platelet Volume 10.7; Monocytes # (A) 0.6 k/uL (0-1.0); Monocytes % (A) 9 %; Neutrophils # (A) 3.9 k/uL (1.3-7.7); Neutrophils % (A) 61 %; RBC 3.38 m/uL (4.30-5.90); RDW 11.9 % (11.5-15.5); WBC 6.4 k/uL (3.8-10.6)
[2020-08-25 14:21] LABS: ALT 23 U/L (4-49); AST 69 U/L (17-59); African American GFR (CKD) >90 (>60 ml/min/1.73 sqM); Albumin 2.4 g/dL (3.5-5.0); Albumin/Globulin Ratio 0.7; Alkaline Phosphatase 183 U/L (38-126); Anion Gap 3 mmol/L; Blood Urea Nitrogen 4 mg/dL (9-20); Calcium 7.5 mg/dL (8.4-10.2); Carbon Dioxide 20 mmol/L (22-30); Chloride 111 mmol/L (98-107); Globulin 3.4 g/dL; Glucose 145 mg/dL (74-99); Non-African American GFR(CKD) >90 (>60 ml/min/1.73 sqM); Potassium 3.4 mmol/L (3.5-5.1); Sodium 134 mmol/L (137-145); Total Bilirubin 2.7 mg/dL (0.2-1.3); Total Protein 5.8 g/dL (6.3-8.2)
[2020-08-25] MEDS ORDERED: Potassium Replacement Protocol 1 EACH MISC MISCELLANE PRN (14:35)
[2020-08-25 14:39] LABS: Platelet Count 95 k/uL (150-450)
[2020-08-25] MEDS: POTASSIUM CHLORIDE ER 20 MEQ TAB.ER PO SCH ×2 (14:44→16:09)
== END 2020-08-25 17:15 | disposition home or self-care (01) | DRG 897 ==
LOC: EC 12:13 → UNDOADMIN 14:54 → 6NMEDSUR 14:54
PROVIDERS: ADMIT Family Medicine; ATTEND Family Medicine
DX: F10.231 Alcohol dependence with withdrawal delirium (principal); E87.1 Hypo-osmolality and hyponatremia; S02.40CA Maxillary fracture, right side, initial encounter for closed fracture; G40.909 Epilepsy, unspecified, not intractable, without status epilepticus; D69.6 Thrombocytopenia, unspecified; S02.2XXA Fracture of nasal bones, initial encounter for closed fracture; E86.0 Dehydration; W19.XXXA Unspecified fall, initial encounter; E87.6 Hypokalemia; K70.10 Alcoholic hepatitis without ascites; Z90.49 Acquired absence of other specified parts of digestive tract; Z90.89 Acquired absence of other organs; Z98.890 Other specified postprocedural states; Z87.891 Personal history of nicotine dependence; Z79.899 Other long term (current) drug therapy
CPT/HCPCS: 36415; 70450; 70486; 72125; 80053; 80306; 80320; 80329; 83520; 83735; 84132; 85025; 93005; 96361; 96365; 96375; 99291